=== PATIENT | female | born 1980 | race Caucasian/White ===

== ENCOUNTER 2017-01-06 20:58 | Emergency (ER) | payer OTHER ==
[2017-01-06 21:10] VITALS: BP 132/69
--- OUTSIDE RECORDS SUMMARY | 2017-01-06 21:33 | XMS REPORT | Continuity of Care Document ---
:1980 Author Organization [facility] ([facility]) Address [address] [place] [address] Phone [phone] Care Team Providers Name Role Phone Christa Montejo Primary Care Provider [phone] Source Comments This disclosure is being made pursuant to the Care Everywhere program, applicable federal and state laws, and may not contain all informaitonavailable regarding this patient.[facility] ([facility]) Active Allergies and Adverse Reactions Allergen Noted Date Severity Reactions Comments Sulfa (Sulfonamide Antibiotics) 09/16/2014 Rash Current Medications No known medications Active Problems Problem Noted Date Headache(784.0) 09/21/2014 Migraine with aura, without mention of intractable migraine without 09/17/2014 mention of status migrainosus New daily persistent headache 09/17/2014 Most Recent Encounters Date Type Specialty Providers Description 12/27/2016 Telephone Otolaryngology Lyly Farias, Chief Comp: Ask-a- nurse RN 12/25/2016 Office Visit Audiology Helena Low, Chief Comp: Patient MD Reported Reason For Visit 12/25/2016 Office Visit Otolaryngology Helena Low Dx: Balance problems (Primary Dx) 12/25/2016 Office Visit Otolaryngology Helena Low, Dx: BPPV (benign MD paroxysmal positional vertigo), left (Primary Dx) 12/13/2016 Telephone Audiology Ashli Loredo Chief Comp: Dizziness 12/07/2016 Office Visit Neurosurgery Ross An, 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 Hospital Encounter Radiology Kristi Hampton MD Chief Comp: Patient Reported Reason For Visit 12/04/2016 Hospital Encounter Radiology Kristi Hampton MD Chief Comp: Patient Reported Reason For Visit 12/04/2016 Hospital Encounter Radiology Kristi Hampton MD Chief Comp: Patient Reported Reason For Visit 11/21/2016 Telephone Neurology Noemy Livingston, Chief Comp: MD Consultation 11/06/2016 Telephone Neurology Chun Freed Chief Comp: Discuss MD Recommendations 11/05/2016 Orders/Notes Neurology Chun Freed Dx: Cerebellar MD tonsillar ectopia (Primary Dx) 11/05/2016 Telephone Neurology Chun Freed Chief Comp: Discuss MD Test Results 11/02/2016 Telephone Neurology Chun Freed Chief Comp: Discuss MD Report 10/29/2016 Orders/Notes Neurology Chun Freed Dx: Vertigo (Primary MD Dx) 10/29/2016 Telephone Neurology Chnu Freed Chief Comp: Request for MD Prescription 10/25/2016 Telephone Neurology Chun Freed Chief Comp: Follow-up MD 10/17/2016 Office Visit Neurology Default, Other Dx: Dizziness (Primary Billg - Defo Dx) Zachariah Khanna MD Hvidston, Jacob A, MD Social History Tobacco Use Types Packs/Day Years Used Date Former Smoker Cigarettes 1 Smokeless Tobacco: Never Used Tobacco Cessation:Counseling Given: Yes Comments:pt smoked when she was younger and not for very long Alcohol Use Drinks/Week oz/Week Comments No Last Filed Vital Signs Vital Sign Reading Time Taken Blood Pressure 126/70 12/25/2016 12:25 PM 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 Pulse 71 12/25/2016 12:25 PM 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 Temperature 35.4 C (95.7 F) 12/25/2016 12:25 PM 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 Respiratory Rate 16 09/11/2014 4:42 PM CDT Height 1.651 m (5' 5") 12/25/2016 12:25 PM 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 Weight 98.4 kg (216 lb 14.9 oz) 12/25/2016 12:25 PM 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 Body Mass Index 36.1 12/25/2016 12:25 PM 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 Oxygen Saturation 99% 09/11/2014 4:42 PM CDT Plan of Care Date Type Specialty Providers Description 01/22/2017 Appointment Rehabilitation Therapist, Rehab Chief Comp: Patient [phone] Reported Reason For Visit 02/26/2017 Appointment Neurology Zachariah Khanna MD [address] [place] [phone] (Fax) Chief Comp: Patient Lourdes Chun Badillo MD [address] [place] [address] [phone] (Fax) Reported Reason For Visit Health Maintenance Due Date Last Done Comments Hepatitis B Vaccine (1 of 3 - Primary Series) 1978 Tdap Vaccine 1989 Lipid Disorder Screening 1996 MMR Vaccine 1996 Td Vaccine 1996 Cervical Cancer Screening 2008 Influenza Vaccine: Seasonal (#1) 06/25/2016 Procedures from Last 3 Months Procedure Name Priority Date/Time Associated Diagnosis Comments BINOC KERI Routine 12/26/2016 10:18 AM Cerebellar tonsillar Results for this 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 ectopia procedure are in the BPPV (benign results section. paroxysmal positional vertigo), left Vertigo Results from Last 3 Months ALFREDO OTOMICROSCOPY (12/26/2016 10:18 AM) Narrative Helena Low MD 12/26/2016 10:18 AM Clinic Note Encounter Date: 12/25/2016 Subjective: Estephania Smart is a 36 y.o. female with new onset vertiginous episodes in June of 2016.She notes consant sensation of lightheadedness.She also has accompanying vertigo, room spinning episodes that last less a minute.The vertigo is brought on by quick movements, and these episodes happen multiple times a day.No hearing changes.She has had a constant occipital pressure for the past 2 years, but no auras or photophobia. Worked-up by neurology, with MRI showing slight cerebellar tonsillar herniation, neurosurgery has evaluated this and felt this was not related to symptoms. 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 No current facility-administered medications for this visit. Allergies Allergen Reactions Sulfa (Sulfonamide Antibiotics) Rash Social History Social History Marital Status: Unknown Spouse Name: N/A Number of Children: N/A Years of Education: N/A Occupational History Not on file. Social History Main Topics Smoking status: Former Smoker -- 1 years Types: Cigarettes Smokeless tobacco: Never Used Comment: pt smoked when she was younger and not for very long Alcohol Use: No Drug Use: No Sexual Activity: Partners: Male Control/ Protection: Natural Family Planning Other Topics Concern Not on file Social History Narrative Review of Systems ROS All systems were reviewed and are negative except for: Constitutional: Tired or sleepy Eyes: Blurry vision Musculoskeletal: Muscle weakness Neurological: Dizziness, Frequent Headaches Objective: BP 126/70 mmHg | Pulse 71 | Temp(Src) 35.4 C (95.7 F) (Tympanic) | Ht 1.651 m (5' 5") | Wt 98.4 kg (216 lb 14.9 oz) | BMI 36.10 kg/m2 Physical exam: General appearanceAlert, cooperative, no distress Communication Normal speech HeadNormocephalic, atraumatic EyesPERRL, EOM's intact; EarsNormal Auricles AU; EAC - - clear; AD - clear; TM: :normal landmarks and mobility AD:normal landmarks and mobility Tuning [place] [employer] [place] [address]? RinneAD + RinneAS + Nose External inspection: dorsum midline Internal inspection: Septum midline. Mucosa normal appearing; Nasopharynx: normal Oral Lips: normal Dentition: normal Mucosa: normal Hard Palate: normal Oropharynx Mucosa: normal Soft palate: normal Tonsils: normal Neck Mass: No neck masses noted Thyroid: normal; no palpable nodules Cranial Nerve CN II-XII intact bilaterally Mood/affect normal Mental Status normal Heartregular rate and rhythm, no m/r/g Abdomen Soft, non-distended Lungs clear to auscultation bilaterally Normal Romberg and gait. No nystagmus with Sammi-Hallpike Data Reviewed: interpret audio/ABR old/outside records AU normal hearing MRI 09/03 - no CPA or IAC tumors Procedure Performed: Otomicroscopy Additional Procedure Detail: The use of the operating otomicroscope was needed for complete, 3D views of the bilateral external auditory canals in this patient. Given the complexity of the otologic history and diagnostic concerns, detailed anatomic visualization with depth perception was required for thorough assessment and treatment planning in addition to any cleaning of cerumen and desquamated debris in the canal and on the tympanic membrane. The findings are documented above in the exam. The Attending Provider listed below was present and available for the entire procedure. Assessment: Encounter Diagnoses ICD-9-CM ICD-10-CM 1. BPPV (benign paroxysmal positional vertigo), left 386.11 H81.12 2. Cerebellar tonsillar ectopia 742.4 Q04.8 3. Vertigo 780.4 R42 Possible component of BPPV, this would not fully explain baseline lightheadedness.The accompanying headaches may be related to these symptoms. Plan: -Instructed on Kp Jeffrey exercises -Referral to Yessy Rojas for vestibular rehab if no improvement in 6 weeks Javan Haines MD Teaching Statement I have interviewed and examined the patient and confirm the pertinent findings.I have discussed the case with the resident/fellow and agree with the findings and plan as documented. EXTERNAL CT - STORE ONLY (12/04/2016 3:57 PM)EXTERNAL MRI - STORE ONLY (2016 3:57 PM)Only the most recent of2 resultswithin the time period is included.
--- NOTE | 2017-01-06 21:46 | ERNOTE ---
Date of Service: 01/06/17 Time Seen by Provider: 01/06/17 21:25 Stated Complaint: COLD.SINUS.COUGH Presenting Symptoms:: cough, runny nose Source: patient, family Exam Limitations: no limitations Immunizations: IMMUNIZATION HX Immunizations Up to Date No History of Influenza Vaccine No Hx Pneumococcal Vaccination More Information Required Allergies/Adverse Reactions: Allergies Sulfa (Sulfonamide Antibiotics) [Sulfa(Sulfonamide Antibiotics)] Allergy (Mild, Verified 01/06/17 21:10) hives, fever Home Medications: HOME MEDICATIONS NK [No Home Medication] 01/06/17 [Last Taken Unknown] - History of Present Ilness Narrative: Pt. comes in with c/o nasal congestion sinus drainage and cough for three days. Pt. states that she has B lateral rib pain with coughing but denies any CP or SOB. Pt. denies any rhinorrhea, NVD, or alleviating factors despite taking sudafed for her symptoms. Review of Systems - Review of Systems Constitutional: Present: malaise. Absent: recent illness, fever, chills, weakness, fatigue EYE: Present: no symptoms reported ENT: Present: nose congestion. Absent: nasal drainage, sore throat Respiratory: Present: cough. Absent: shortness of breath, wheezing Cardiology: Present: no symptoms reported. Absent: chest pain, palpitations, edema Gastrointestinal/Abdominal: Present: no symptoms reported. Absent: nausea, vomiting, diarrhea Genitourinary: Present: no symptoms reported Musculoskeletal: Present: no symptoms reported. Absent: back pain, joint pain Skin: Present: no symptoms reported Neurological: Present: no symptoms reported. Absent: headache, dizziness/light- headedness, numbness, tingling All Other Systems: All systems neg except as marked - Patient's Past Medical History Patient History - Medical: Headache, UTI'S Patient History - Cardiac/Respiratory: No pertinent hx Patient History - Cancer: No Hx of Cancer Patient History - Surgical Procedures: , Hysterectomy, Other Patient History - Other: None - Family History Mother Family History - Medical: No pertinent hx Family History - Cardiac/Respiratory: No pertinent hx Father Family History - Medical: , No pertinent hx Family History - Cardiac/Respiratory: Myocardial Infarction Grandfather-Maternal Family History - Medical: No pertinent hx Family History - Cardiac/Respiratory: No pertinent hx - Social History Living Situations: home Abuse History: No History of abuse Psych History: No pertinent hx Does anyone smoke in the home?: No Smoking Status: Former smoker Alcohol Use: none Drug Use: none - Immunizations Immunizations Up to Date: No Hx Pneumococcal Vaccination: More Information Required to Determine History of Influenza Vaccine: No Physical Exam - Physical Exam General Appearance: Present: wd/wn, alert, no apparent distress Eye Exam: Normal inspection: bilateral, PERRL: bilateral, EOMI: bilateral Ears, Nose, Throat: Present: hearing grossly normal, nasal congestion, sinus pain/drainage, normal pharynx, tonsillar exudate - clear. Absent: pharyngeal erythema Neck: Present: normal inspection, nontender. Absent: lymphadenopathy (R), lymphadenopathy (L) Respiratory: Present: no respiratory distress, normal breath sounds, no accessory muscle use, chest nontender, lungs clear Cardiovascular/Chest: Present: regular rate, rhythm, no murmur, normal peripheral pulses Gastrointestinal/Abdominal: Present: normal bowel sounds, nontender, nondistended, soft, no organomegaly Back Exam: Present: normal inspection, normal range of motion, no CVA tenderness , no vertebral tenderness Extremity Exam: Present: normal inspection, non-tender, no edema, normal range of motion Neurological Exam: Present: alert, oriented, normal mood/affect, no motor/ sensory deficits Skin Exam: Present: normal color, warm/dry. Absent: pallor, skin rash ED Progress - Vital Signs Patient's Vital Signs:: I have reviewed the patient's vital signs. Vital Signs: Vital Signs 01/06/17 21:05 Temperature 36.2 C L Pulse Rate 72 Respiratory 18 Rate Blood Pressure 132/69 O2 Sat by Pulse 99 Oximetry - Progress/Reassessment Chief Complaint: Upper Respiratory Symptoms Departure - Departure Clinical Impression: Bronchitis Upper respiratory infection Qualifiers: URI type: unspecified viral URI Qualified Code(s): J06.9 - Acute upper respiratory infection, unspecified; B97.89 - Other viral agents as the cause of diseases classified elsewhere Disposition: Home self-care Condition: Good Instructions: Upper Respiratory Infection, Adult, [id number], Acute Bronchitis Additional Instructions: Please follow up with primary provider in a week if no improvement. Rest as much as possible. Take robitussin DM and sudafed as needed for symptoms. Referrals: Christa Montejo MD [Primary Care Provider] -
== END 2017-01-06 21:46 | disposition home or self-care (01) ==
LOC: ER 20:58
DX: J40 Bronchitis, not specified as acute or chronic (principal); J06.9 Acute upper respiratory infection, unspecified; B97.89 Other viral agents as the cause of diseases classified elsewhere

== ENCOUNTER 2017-01-17 21:01 | Emergency (ER) | payer OTHER ==
[2017-01-17 21:14] VITALS: BP 122/69
--- NOTE | 2017-01-17 21:32 | ERNOTE ---
Time Seen by Provider: 01/17/17 21:29 Stated Complaint: COLD Presenting Symptoms:: cough, sore throat Source: patient Exam Limitations: no limitations Immunizations: IMMUNIZATION HX Immunizations Up to Date No History of Influenza Vaccine No Hx Pneumococcal Vaccination More Information Required Allergies/Adverse Reactions: Allergies Sulfa (Sulfonamide Antibiotics) [Sulfa(Sulfonamide Antibiotics)] Allergy (Mild, Verified 01/17/17 21:14) hives, fever Home Medications: HOME MEDICATIONS Amox Tr/Potassium Clavulanate [Augmentin 875-125 Tablet] 875 mg PO Q12H #20 tab 01/17/17 [Last Taken Unknown] Fluticasone Propionate [Flonase] 2 spray NS DAILY #1 inhaler 01/17/17 [Last Taken Unknown] - History of Present Ilness Narrative: has had URI symptoms for a month. Was seen in this ED 2 weeks ago and given robitussin and sudafed. continues to have symptoms Timing: getting worse Severity: moderate Frequency/Possible Cause: Reports: occasional episodes Review of Systems - Review of Systems Constitutional: Present: See HPI. Absent: fever EYE: Present: no symptoms reported ENT: Present: other - frequent clearing of her throat that "I have always done" Respiratory: Present: cough Cardiology: Present: no symptoms reported Gastrointestinal/Abdominal: Present: no symptoms reported Genitourinary: Present: no symptoms reported Musculoskeletal: Present: no symptoms reported Skin: Present: no symptoms reported Neurological: Present: no symptoms reported Endocrine: Present: no symptoms reported Hematologic/Lymphatic: Present: swollen glands - left upper cervical, have been sore - Patient's Past Medical History Patient History - Medical: Headache, UTI'S Patient History - Cardiac/Respiratory: No pertinent hx Patient History - Cancer: No Hx of Cancer Patient History - Surgical Procedures: , Hysterectomy, Other Patient History - Other: None - Family History Mother Family History - Medical: No pertinent hx Family History - Cardiac/Respiratory: No pertinent hx Father Family History - Medical: , No pertinent hx Family History - Cardiac/Respiratory: Myocardial Infarction Grandfather-Maternal Family History - Medical: No pertinent hx Family History - Cardiac/Respiratory: No pertinent hx - Social History Living Situations: home Abuse History: No History of abuse Psych History: No pertinent hx Does anyone smoke in the home?: No Smoking Status: Never smoker Alcohol Use: none Drug Use: none - Immunizations Immunizations Up to Date: No Hx Pneumococcal Vaccination: More Information Required to Determine History of Influenza Vaccine: No Physical Exam - Physical Exam General Appearance: Present: wd/wn, alert, no apparent distress Eye Exam: Normal inspection: bilateral Ears, Nose, Throat: Present: nasal congestion - with polyps bilateral, moderate erythema on the right and pale mucosa on the left, sinus pain/drainage - minimal PND. Absent: pharyngeal erythema Neck: Present: lymphadenopathy (L) - upper cervical Respiratory: Present: no respiratory distress, normal breath sounds, no accessory muscle use, lungs clear Cardiovascular/Chest: Present: regular rate, rhythm, no murmur Neurological Exam: Present: alert, oriented, normal mood/affect, no motor/ sensory deficits Skin Exam: Present: normal color, warm/dry ED Progress - Vital Signs Patient's Vital Signs:: I have reviewed the patient's vital signs. Vital Signs: Vital Signs 01/17/17 21:01 Temperature 36.5 C Pulse Rate 78 Respiratory 20 Rate Blood Pressure 122/69 O2 Sat by Pulse 98 Oximetry - Progress/Reassessment Chief Complaint: Upper Respiratory Symptoms Departure - Departure Clinical Impression: Nasal polyp Sinusitis, acute ethmoidal Qualifiers: Recurrence: non-recurrent Qualified Code(s): J01.20 - Acute ethmoidal sinusitis , unspecified Disposition: Home Follow Up Needed Condition: Good Instructions: Sinusitis, Adult, [id number] Referrals: Christa Montejo MD [Primary Care Provider] - Prescriptions: Amox Tr/Potassium Clavulanate [Augmentin 875-125 Tablet] 875 mg PO Q12H #20 tab Fluticasone Propionate [Flonase] 2 spray NS DAILY #1 inhaler
--- OUTSIDE RECORDS SUMMARY | 2017-01-17 21:42 | XMS REPORT | Continuity of Care Document ---
:1980 Author Organization [facility] ([facility]) Address [address] [place] [address] Phone [phone] Care Team Providers Name Role Phone Christa Montejo Primary Care Provider [phone] Source Comments This disclosure is being made pursuant to the Care Everywhere program, applicable federal and state laws, and may not contain all informaitonavailable regarding this patient.[facility] ([facility]) Active Allergies and Adverse Reactions Allergen [...] Vertigo (Primary MD Dx) 10/29/2016 Telephone Neurology Chun Freed Chief Comp: Request for MD Prescription [...] Taken Blood Pressure 126/70 12/25/2016 12:25 PM TRANSITIONS RN CARE COORDINATOR Pulse 71 12/25/2016 12:25 PM TRANSITIONS RN CARE COORDINATOR Temperature 35.4 C (95.7 F) 12/25/2016 12:25 PM TRANSITIONS RN CARE COORDINATOR Respiratory Rate 16 09/11/2014 4:42 PM CDT Height 1.651 m (5' 5") 12/25/2016 12:25 PM TRANSITIONS RN CARE COORDINATOR Weight 98.4 kg (216 lb 14.9 oz) 12/25/2016 12:25 PM TRANSITIONS RN CARE COORDINATOR Body Mass Index 36.1 12/25/2016 12:25 PM TRANSITIONS RN CARE COORDINATOR Oxygen Saturation 99% 09/11/2014 4:42 PM CDT Plan of Care Date Type Specialty Providers Description 01/22/2017 Appointment Rehabilitation Therapist, Rehab Chief Comp: Patient [phone] Reported Reason For Visit 02/26/2017 Appointment Neurology Zachariah Khanna MD [address] [place] [phone] (Fax) Chief Comp: Patient Lourdes Chun Badillo MD [address] [place] [address] [phone] (Fax) Reported Reason For Visit Health Maintenance [...] 10:18 AM Cerebellar tonsillar Results for this TRANSITIONS RN CARE COORDINATOR ectopia procedure are in the BPPV (benign [...] problems PSH: no ear surgeries 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 RinneAD + RinneAS + Nose [...]
[2017-01-17] MEDS ORDERED: AMOX TR/POTASSIUM CLAVULANATE 875 MG TABLET PO ONE (21:47)
[2017-01-17] MEDS ORDERED: AMOX TR/POTASSIUM CLAVULANATE 875 MG TABLET ONE (21:50)
== END 2017-01-17 21:54 | disposition home or self-care (01) ==
LOC: ER 21:01
DX: J33.9 Nasal polyp, unspecified (principal); J01.20 Acute ethmoidal sinusitis, unspecified

== ENCOUNTER 2017-02-11 08:29 | Emergency (ER) | payer OTHER ==
--- NOTE | 2017-02-11 08:52 | ERNOTE ---
Chest Pain/Cardiac HPI Chief Complaint: Chest Pain Time Seen by Provider: 02/11/17 08:48 Source: patient Exam Limitations: no limitations Immunizations: IMMUNIZATION HX Immunizations Up to Date No History of Influenza Vaccine No Hx Pneumococcal Vaccination More Information Required Allergies/Adverse Reactions: Allergies Sulfa (Sulfonamide Antibiotics) [Sulfa(Sulfonamide Antibiotics)] Allergy (Mild, Verified 01/17/17 21:14) hives, fever Home Medications: HOME MEDICATIONS Amox Tr/Potassium Clavulanate [Augmentin 875-125 Tablet] 875 mg PO Q12H #20 tab 01/17/17 [Last Taken Unknown] Fluticasone Propionate [Flonase] 2 spray NS DAILY #1 inhaler 01/17/17 [Last Taken Unknown] Narrative: chest discomfort for 3 days, worse today intermittent and arm pain changing from left to right Timing: getting worse Severity/Quality: moderate Location: central, shoulder, back, abdomen Chest Pain Radiation: arms Activities at Onset: none Modifying Factors - Improves: Present: rest Modifying Factors - Worsens: Present: eating, position Associated Symptoms: Present: nausea, abdominal pain. Absent: dizziness, syncope, shortness of breath Review of Systems - Review of Systems Constitutional: Present: no symptoms reported EYE: Present: no symptoms reported ENT: Present: no symptoms reported Respiratory: Present: no symptoms reported Cardiology: Present: See HPI Gastrointestinal/Abdominal: Present: See HPI. Absent: vomiting Genitourinary: Present: no symptoms reported Musculoskeletal: Present: back pain, muscle pain Skin: Present: no symptoms reported Neurological: Present: no symptoms reported Endocrine: Present: no symptoms reported Hematologic/Lymphatic: Present: no symptoms reported Psych: Present: no symptoms reported - Patient's Past Medical History Patient History - Medical: Headache, UTI'S Patient History - Cardiac/Respiratory: No pertinent hx Patient History - Cancer: No Hx of Cancer Patient History - Surgical Procedures: , Hysterectomy, Other Patient History - Other: None - Family History Mother Family History - Medical: No pertinent hx Family History - Cardiac/Respiratory: No pertinent hx Father Family History - Medical: , No pertinent hx Family History - Cardiac/Respiratory: Myocardial Infarction Grandfather-Maternal Family History - Medical: No pertinent hx Family History - Cardiac/Respiratory: No pertinent hx - Social History Living Situations: home Abuse History: No History of abuse Psych History: No pertinent hx Does anyone smoke in the home?: No Alcohol Use: none Drug Use: none - Immunizations Immunizations Up to Date: No Hx Pneumococcal Vaccination: More Information Required to Determine History of Influenza Vaccine: No Physical Exam - Physical Exam General Appearance: Present: wd/wn, alert, no apparent distress Eye Exam: Normal inspection: bilateral Ears, Nose, Throat: Present: normal ENT inspection Neck: Present: normal inspection, nontender Respiratory: Present: no respiratory distress, normal breath sounds, no accessory muscle use, lungs clear Cardiovascular/Chest: Present: regular rate, rhythm, no murmur, normal peripheral pulses Gastrointestinal/Abdominal: Present: normal bowel sounds, tenderness - mild LUQ Back Exam: Present: no CVA tenderness, no vertebral tenderness Extremity Exam: Present: normal inspection, non-tender, no edema Neurological Exam: Present: alert, oriented, normal mood/affect Skin Exam: Present: normal color, warm/dry ED Progress - Results and Orders Patient's Lab Results:: I have reviewed the patient's lab results. Results and Orders: Laboratory Tests 02/11/17 02/11/17 02/11/17 08:55 08:55 08:55 WBC 5.0 Hgb 12.9 Hct 41.0 Plt Count 222 PT 10.7 INR (Anticoag Therapy) 1.03 PTT ([place]) 27.5 Sodium 144 H Potassium 3.7 Chloride 107 H Carbon Dioxide 28.7 Anion Gap 12.0 BUN 17 Creatinine 1.16 Est GFR (Non-Af Amer) 56 L Random Glucose 94 Calcium 8.7 Total Bilirubin 0.6 AST 13 ALT 14 L Alkaline Phosphatase 75 Troponin I Less than 0.017 Total Protein 7.0 - Vital Signs Patient's Vital Signs:: I have reviewed the patient's vital signs. Vital Signs: Vital Signs 02/11/17 08:35 Temperature 37.0 C Pulse Rate 60 Respiratory 17 Rate Blood Pressure 132/56 O2 Sat by Pulse 98 Oximetry - EKG EKG: NSR EKG read: Interp. by me EKG Comments: mod. intraventricular conduction delay. - X-Ray X-Ray #1 X-Ray: chest Interpretation: Interp. by me X-ray Comments: no infiltrate or effusion. suggestive of bronchitis - Progress/Reassessment Chief Complaint: Chest Pain Progress:: Improved Progress Note-Subjective: 03/20/17 10:54 Pt was given a GI coctail, she states that her pain is worse in the LUQ and around to her back now than before. Crampy with some occasional sharp pains. Mild tenderness in the LUQ. Departure - Departure Clinical Impression: Constipation Qualifiers: Constipation type: other constipation type Qualified Code(s): K59.09 - Other constipation Disposition: Home self-care Condition: Good Instructions: Constipation, Adult, [id number] Additional Instructions: Take a dose of milk of Magnesia as soon as you get home. Drink plenty of water. follow up with your regular doctor if not improving Referrals: Christa Montejo MD [Primary Care Provider] -
[2017-02-11 09:07] LABS: Hemoglobin 12.9 gm/dL (12.5-16.0); Mean Cell Volume 89.9 fl (78-100); Mean Corpuscular Hemoglobin 28.3 pg (27-31); Mean Corpuscular Hgb Conc 31.5 g/dl (32-36); Mean Platelet Volume 9.6 fl (6.0-9.5); Neutrophil # 3.3 K/mm3 (1.3-6.0); Neutrophil % 66.3 % (42-75.0); Platelet Count 222 K/mm3 (150-450); Red Blood Count 4.56 M/mm3 (4.2-5.4)
[2017-02-11 09:18] LABS: Prothrombin Time (Patient) 10.7 Seconds (9.4-11.4)
[2017-02-11 09:19] LABS: INR 1.03 INR (0.90-1.10); Partial Thrombolplastin Time 27.5 Seconds (24-32)
--- OUTSIDE RECORDS SUMMARY | 2017-02-11 09:23 | XMS REPORT | Continuity of Care Document ---
:1980 Author Organization [facility] ([facility]) Address [address] [place] [address] Phone [phone] Care Team Providers Name Role Phone Christa Montejo Primary Care Provider [phone] Source Comments This disclosure is being made pursuant to the Care Everywhere program, applicable federal and state laws, and may not contain all informaitonavailable regarding this patient.[facility] ([facility]) Active Allergies and Adverse Reactions Allergen Noted Date Severity Reactions Comments Sulfa (Sulfonamide Antibiotics) 09/16/2014 Rash Current Medications No known medications Active Problems Problem Noted Date Headache(784.0) 09/21/2014 Migraine with aura, without mention of intractable migraine without 09/17/2014 mention of status migrainosus New daily persistent headache 09/17/2014 Most Recent Encounters Date Type Specialty Providers Description 01/22/2017 Hospital Encounter Rehabilitation Therapist, Rehab Chief Comp: Patient Reported Reason For Visit 12/27/2016 Telephone Otolaryngology Lyly Farias, Chief Comp: MARILEE Sethi-a-nurse 12/25/2016 Office Visit Audiology Helena Low, Chief Comp: Patient MD Reported Reason For Visit 12/25/2016 Office Visit Otolaryngology Helena Low, Dx: Balance problems (Primary Dx) 12/25/2016 Office Visit Otolaryngology Heelna Low Dx: BPPV (benign MD paroxysmal positional vertigo), left (Primary Dx) 12/13/2016 Telephone Audiology Ashli Loredo Chief Comp: Dizziness 12/07/2016 Office Visit Neurosurgery Ross An MD 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 Hospital Encounter Radiology Kristi Hampton MD Chief Comp: Patient Reported Reason For Visit 12/04/2016 Hospital Encounter Radiology Kristi Hampton MD Chief Comp: Patient Reported Reason For Visit 12/04/2016 Hospital Encounter Radiology Kristi Hampton MD Chief Comp: Patient Reported Reason For Visit 11/21/2016 Telephone Neurology Noemy Livingston MD Chief Comp: Consultation Social History Tobacco Use Types Packs/Day Years Used Date Former Smoker Cigarettes 1 Smokeless Tobacco: Never Used Tobacco Cessation:Counseling Given: Yes Comments:pt smoked when she was younger and not for very long Alcohol Use Drinks/Week oz/Week Comments No Last Filed Vital Signs Vital Sign Reading Time Taken Blood Pressure 126/70 12/25/2016 12:25 PM [employer] Pulse 71 12/25/2016 12:25 PM [employer] Temperature 35.4 C (95.7 F) 12/25/2016 12:25 PM [employer] Respiratory Rate 16 09/11/2014 4:42 PM CDT Height 1.651 m (5' 5") 12/25/2016 12:25 PM [employer] Weight 98.4 kg (216 lb 14.9 oz) 12/25/2016 12:25 PM [employer] Body Mass Index 36.1 12/25/2016 12:25 PM [employer] Oxygen Saturation 99% 09/11/2014 4:42 PM CDT Plan of Care Date Type Specialty Providers Description 02/26/2017 Appointment Neurology Zachariah Khanna MD [address] [place] [address] [phone] (Fax) Chief Comp: Patient Lourdes Chun Badillo MD [address] [place] [address] [phone] (Fax) Reported Reason For Visit Health Maintenance [...] 10:18 AM Cerebellar tonsillar Results for this [employer] ectopia procedure are in the BPPV (benign [...] problems PSH: no ear surgeries 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 RinneAD + RinneAS + Nose [...] Normal Romberg and gait. No nystagmus with [place]-Hallpike Data Reviewed: interpret audio/ABR old/outside records [place] [...]
[2017-02-11 09:25] LABS: ALT 14 U/L (19-67); AST 13 U/L (0-48); Albumin * 3.7 gm/dl (3.4-5.0); Alkaline Phosphatase * 75 U/L (50-170); BUN/Creatinine Ratio 14.7 (9.0-21.6); Bilirubin, Total 0.6 mg/dL (0.0-1.1); Blood Urea Nitrogen 17 mg/dL (3-23); Ca. Corrected For Albumin 8.6 mg/dL (8.4-10.2); Calcium * 8.7 mg/dL (7.9-10.9); Carbon Dioxide 28.7 mmol/L (24-32.6); Chloride 107 mmol/L (97-106); Glucose * 94 mg/dL (70-110); Potassium 3.7 mmol/L (3.4-4.6); Sodium 144 mmol/L (132-142); Troponin I Less than 0.017 ng/ml (0.00-0.10)
[2017-02-11] MEDS ORDERED: LIDOCAINE HCL 20 ML UDC PO ONE (10:18)
[2017-02-11] MEDS ORDERED: MAG HYDROX/ALUMINUM HYD/SIMETH 30 ML UDC PO ONE (10:18)
[2017-02-11] MEDS ORDERED: SUCRALFATE 1 G/10 ML UDC PO ONE (10:18)
[2017-02-11] MEDS ORDERED: DICYCLOMINE HCL 10 MG/ML AMPUL IM ONE ×2 (10:56→10:59)
[2017-02-11 11:07] VITALS: BP 97/50
== END 2017-02-11 13:01 | disposition home or self-care (01) ==
LOC: ER 08:29
DX: K59.09 Other constipation (principal)

== ENCOUNTER 2017-02-17 18:43 | Emergency (ER) | payer OTHER ==
[2017-02-17] MEDS ORDERED: KETOROLAC TROMETHAMINE 60 MG/2 ML VIAL IM ONE ×2 (19:25→19:43)
--- OUTSIDE RECORDS SUMMARY | 2017-02-17 19:28 | XMS REPORT | Continuity of Care Document ---
:1980 Author Organization [facility] ([facility]) Address [address] [place] [address] Phone [phone] Care Team Providers Name Role Phone Christa Montejo Primary Care Provider [phone] Source Comments This disclosure is being made pursuant to the Care Everywhere program, applicable federal and state laws, and may not contain all informaitonavailable regarding this patient.[facility] ([facility]) Active Allergies and Adverse Reactions Allergen [...] (Primary Dx) 12/25/2016 Office Visit Otolaryngology Helena Low Dx: BPPV (benign MD paroxysmal positional [...] Taken Blood Pressure 126/70 12/25/2016 12:25 PM [employer] Pulse 71 12/25/2016 12:25 PM [employer] Temperature 35.4 C (95.7 F) 12/25/2016 12:25 PM [employer] Respiratory Rate 16 09/11/2014 4:42 PM CDT Height 1.651 m (5' 5") 12/25/2016 12:25 PM [employer] Weight 98.4 kg (216 lb 14.9 oz) 12/25/2016 12:25 PM [employer] Body Mass Index 36.1 12/25/2016 12:25 PM [employer] Oxygen Saturation 99% 09/11/2014 4:42 PM CDT Plan of Care Date Type Specialty Providers Description 02/26/2017 Appointment Neurology Zachariah Khanna MD [address] [place] [address] [phone] (Fax) Chief Comp: Patient Lourdes Chun Badillo MD [address] [place] [address] [phone] (Fax) Reported Reason For Visit Health Maintenance [...] 10:18 AM Cerebellar tonsillar Results for this [employer] ectopia procedure are in the BPPV (benign [...] problems PSH: no ear surgeries 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 RinneAD + RinneAS + Nose [...] Normal Romberg and gait. No nystagmus with [place]-Hallpike Data Reviewed: interpret audio/ABR old/outside records [place] [...]
--- NOTE | 2017-02-17 19:35 | ERNOTE ---
Dyspnea - Date Date of Service: 02/17/17 - General Presenting Symptoms: other Time Seen by Provider: 02/17/17 19:00 Source: patient Exam Limitations: no limitations - Immun/Allergies/Home Medications Immunizations: IMMUNIZATION HX Immunizations Up to Date No History of Influenza Vaccine No Hx Pneumococcal Vaccination More Information Required Allergies/Adverse Reactions: Allergies Sulfa (Sulfonamide Antibiotics) [Sulfa(Sulfonamide Antibiotics)] Allergy (Mild, Verified 01/17/17 21:14) hives, fever Home Medications: HOME MEDICATIONS Indomethacin 50 mg PO QID #30 cap 02/17/17 [Last Taken Unknown] - History of Present Illness Narrative: 3 months ago, had bronchits. Has had anterior chest pain since. Denies specifically heart burn and indigestion. Is not actually SOB, but says it is painful to breathe. Chest pain in aching all the time, with episodic sharp chest pain. No radiation of pain. No diaphoresis, lightheadness or nausea with the pain, although for the last week she has had some nausea and anorexia. She took some alleve today, but it didn't help her pain. Breathing, coughing or changing position worsen her pain. Severity: mild, moderate Treatment VESSEL LINER: by patient - alleve Initiating event: Reports: other - bronchitis Frequency of episodes: Reports: no prior episodes Modifying Factors - (Improves): Reports: rest Modifying Factors (Worsens): Reports: activity, coughing, lying down Associated Symptoms-Dyspnea: Reports: chest pain/discomfort Prior Treatment: Denies: recently seen, currently on antibiotics Review of Systems - Review of Systems Constitutional: Present: no symptoms reported EYE: Present: no symptoms reported ENT: Present: no symptoms reported Respiratory: Present: no symptoms reported Cardiology: Present: no symptoms reported Gastrointestinal/Abdominal: Present: no symptoms reported Genitourinary: Present: no symptoms reported Musculoskeletal: Present: See HPI Skin: Present: no symptoms reported Neurological: Present: no symptoms reported Endocrine: Present: no symptoms reported Hematologic/Lymphatic: Present: no symptoms reported Psych: Present: no symptoms reported All Other Systems: All systems neg except as marked - Patient's Past Medical History Patient History - Medical: Headache, UTI'S Patient History - Cardiac/Respiratory: No pertinent hx Patient History - Cancer: No Hx of Cancer Patient History - Surgical Procedures: , Hysterectomy, Other Patient History - Other: None - Family History Mother Family History - Medical: No pertinent hx Family History - Cardiac/Respiratory: No pertinent hx Father Family History - Medical: , No pertinent hx Family History - Cardiac/Respiratory: Myocardial Infarction Grandfather-Maternal Family History - Medical: No pertinent hx, GERD Family History - Cardiac/Respiratory: No pertinent hx - Social History Living Situations: other Abuse History: No History of abuse Psych History: No pertinent hx Does anyone smoke in the home?: No Smoking Status: Former smoker Alcohol Use: none Drug Use: none - Immunizations Immunizations Up to Date: No Hx Pneumococcal Vaccination: More Information Required to Determine History of Influenza Vaccine: No Physical Exam - Physical Exam General Appearance: Present: wd/wn, alert, no apparent distress Eye Exam: Normal inspection: bilateral, PERRL: bilateral, EOMI: bilateral Ears, Nose, Throat: Present: normal ENT inspection Neck: Present: normal inspection, nontender. Absent: lymphadenopathy (R), lymphadenopathy (L) Respiratory: Present: no respiratory distress, normal breath sounds, no accessory muscle use Cardiovascular/Chest: Present: regular rate, rhythm, no murmur, normal peripheral pulses, chest tenderness - anterior chest wall tenderness, costochondral junctions. left worse than right Gastrointestinal/Abdominal: Present: normal bowel sounds, nontender, nondistended, soft, no organomegaly Back Exam: Present: normal inspection, normal range of motion, no CVA tenderness , no vertebral tenderness Extremity Exam: Present: normal inspection, no edema Neurological Exam: Present: alert, oriented, normal mood/affect Skin Exam: Present: normal color, warm/dry ED Progress - Vital Signs Patient's Vital Signs:: I have reviewed the patient's vital signs. Vital Signs: Vital Signs 02/17/17 18:47 Temperature 36.8 C Pulse Rate 64 Respiratory 14 Rate Blood Pressure 142/77 O2 Sat by Pulse 99 Oximetry - EKG EKG read: Interp. by me - sinus bradycardia in the anterior leads. - Progress/Reassessment Chief Complaint: Dyspnea Departure Clinical Impression: Costochondritis - Departure Disposition: Home self-care Condition: Good Instructions: Costochondritis, [id number] Additional Instructions: see your doctor this week or next. stop the pain meds, except the one we prescribed today. Referrals: Christa Montejo MD [Primary Care Provider] - Prescriptions: Indomethacin 50 mg PO QID #30 cap
[2017-02-17 21:08] VITALS: BP 107/65
== END 2017-02-17 19:46 | disposition home or self-care (01) ==
LOC: ER 18:43
DX: M94.0 Chondrocostal junction syndrome [Tietze] (principal)

== ENCOUNTER 2017-03-08 14:51 | Emergency (ER) | payer SELFPAY ==
--- OUTSIDE RECORDS SUMMARY | 2017-03-08 17:47 | XMS REPORT | Continuity of Care Document ---
:1980 Author Organization [facility] ([facility]) Address [address] [place] [address] Phone [phone] Care Team Providers Name Role Phone Christa Montejo Primary Care Provider [phone] Source Comments This disclosure is being made pursuant to the Care Everywhere program, applicable federal and state laws, and may not contain all informaitonavailable regarding this patient.[facility] ([facility]) Active Allergies and Adverse Reactions Allergen Noted Date Severity Reactions Comments Sulfa (Sulfonamide Antibiotics) 09/16/2014 Rash Current Medications No known medications Active Problems Problem Noted Date Headache(784.0) 09/21/2014 Migraine with aura, without mention of intractable migraine without 09/17/2014 mention of status migrainosus New daily persistent headache 09/17/2014 Most Recent Encounters Date Type Specialty Providers Description 02/26/2017 Office Visit Neurology Zachariah Khanna Chief Comp: Patient L, Reported Reason For Chun Freed, Visit MD 01/22/2017 Hospital Encounter Rehabilitation Therapist, Rehab Chief Comp: Patient Reported Reason For Visit 12/27/2016 Telephone Otolaryngology Lyly Farias, Chief Comp: MARILEE Ask-a-nurse 12/25/2016 Office Visit Audiology Helena Low, Chief Comp: Patient Reported Reason For Visit 12/25/2016 Office Visit Otolaryngology Helena Low, Dx: Balance problems (Primary Dx) 12/25/2016 Office Visit Otolaryngology Helena Low Dx: BPPV (benign MD paroxysmal positional vertigo), left (Primary Dx) 12/13/2016 Telephone Audiology Ashli Loredo Chief Comp: Dizziness Social History Tobacco Use Types Packs/Day Years Used Date Former Smoker Cigarettes 1 Smokeless Tobacco: Never Used Tobacco Cessation:Counseling Given: Yes Comments:pt smoked when she was younger and not for very long Alcohol Use Drinks/Week oz/Week Comments No Last Filed Vital Signs Vital Sign Reading Time Taken Blood Pressure 126/70 12/25/2016 12:25 PM [employer] Pulse 71 12/25/2016 12:25 PM [employer] Temperature 35.4 C (95.7 F) 12/25/2016 12:25 PM [employer] Respiratory Rate 16 09/11/2014 4:42 PM CDT Height 1.651 m (5' 5") 12/25/2016 12:25 PM [employer] Weight 98.4 kg (216 lb 14.9 oz) 12/25/2016 12:25 PM [employer] Body Mass Index 36.1 12/25/2016 12:25 PM [employer] Oxygen Saturation 99% 09/11/2014 4:42 PM CDT Plan of Care Health Maintenance Due Date Last Done Comments Hepatitis B Vaccine (1 of 3 - Primary Series) 1980 Tdap Vaccine 1989 Lipid Disorder Screening 1996 MMR Vaccine 1996 Td Vaccine 1996 Cervical Cancer Screening 2008 Influenza Vaccine: Seasonal Completed Procedures from Last 3 Months Procedure Name Priority Date/Time Associated Diagnosis Comments BINOC KERI Routine 12/26/2016 10:18 AM Cerebellar tonsillar Results for this [employer] ectopia procedure are in the BPPV (benign [...] problems PSH: no ear surgeries 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 RinneAD + RinneAS + Nose [...] Normal Romberg and gait. No nystagmus with [place]-Hallpike Data Reviewed: interpret audio/ABR old/outside records [place] [...]
--- NOTE | 2017-03-08 17:58 | ERNOTE ---
Headache ER HPI - Narrative Date of Service: 03/08/17 - General Presenting Symptoms: headache Time Seen by Provider: 03/08/17 17:27 - Immun/Allergies/Home Medications Immunizations: IMMUNIZATION HX Immunizations Up to Date No History of Influenza Vaccine No Hx Pneumococcal Vaccination More Information Required Allergies/Adverse Reactions: Allergies Sulfa (Sulfonamide Antibiotics) [Sulfa(Sulfonamide Antibiotics)] Allergy (Mild, Verified 03/08/17 16:47) hives, fever Home Medications: HOME MEDICATIONS NK [No Home Medication] 03/08/17 [Last Taken Unknown] - History of Present Illness Narrative: PT SAYS SHE AWAKENED AT 1030 THIS A.M. WITH ONE OF HER HEADACHES TO THE RIGHT OCCIPITAL AREA . SHE TOOK NOTHING FOR THE PAIN. LATER SHE CALLED HER DR'S OFFICE AND THE NURSE TOLD HER SHE SHOULD GO TO THE ER BECAUSE MAYBE SHE NEEDED AN XRAY OR CT SCAN. SHE HAS NOT HX OF ANY TRAUMA. SHE DENIES ANY FEVER OR NECK PAIN. SHE STATES SHE HAS NO MEDICAL PROBLEMS AND ONLY SURGERY IS HYSTERECTOMY. SHE SLOWLY REVEALS THAT SHE HAS A HISTORY OF HEADACHES AND HAS EVEN BEEN EVALUATED WITHIN THE PAST YEAR BY NEUROLOGISTS IN [place] WHO CAN'T FIND ANYTHING WRONG OR TELL HER WHY SHE GETS TENDERNESS TO AN AREA ON HER LEFT UPPER OCCIPTIAL ( SHE POINTS TO THE AREA). Review of Systems - Review of Systems Constitutional: Present: See HPI EYE: Present: no symptoms reported ENT: Present: no symptoms reported Respiratory: Present: no symptoms reported Cardiology: Present: no symptoms reported Gastrointestinal/Abdominal: Present: no symptoms reported Genitourinary: Present: no symptoms reported Musculoskeletal: Present: See HPI - OCCIPITAL POINT TENDERNESS. Neurological: Present: See HPI, headache. Absent: seizure, weakness, numbness, tingling, tremors, pre-existing deficit Endocrine: Present: no symptoms reported Hematologic/Lymphatic: Present: no symptoms reported Psych: Present: no symptoms reported All Other Systems: All systems neg except as marked - Patient's Past Medical History Patient History - Medical: Headache, UTI'S Patient History - Cardiac/Respiratory: No pertinent hx Patient History - Cancer: No Hx of Cancer Patient History - Surgical Procedures: , Hysterectomy, Other Patient History - Other: None - Family History Mother Family History - Medical: No pertinent hx Family History - Cardiac/Respiratory: No pertinent hx Father Family History - Medical: , No pertinent hx Family History - Cardiac/Respiratory: Myocardial Infarction Grandfather-Maternal Family History - Medical: No pertinent hx, GERD Family History - Cardiac/Respiratory: No pertinent hx - Social History Living Situations: alone Abuse History: No History of abuse Psych History: No pertinent hx Does anyone smoke in the home?: No Smoking Status: Never smoker Alcohol Use: none Drug Use: none - Immunizations Immunizations Up to Date: No Hx Pneumococcal Vaccination: More Information Required to Determine History of Influenza Vaccine: No Physical Exam - Physical Exam General Appearance: Present: wd/wn, alert, no apparent distress, other - SHE HAS A VERY LOCALIZED ARE OF HER LEFFT UPPER OCCIPITAL SCALP THAT IS TENDER TO PALPATION FROM WHICH HER H.A. EMMINATES. Eye Exam: Normal inspection: bilateral, PERRL: bilateral, EOMI: bilateral Ears, Nose, Throat: Present: normal ENT inspection Neck: Present: normal inspection, nontender Respiratory: Present: no respiratory distress, normal breath sounds, no accessory muscle use, chest nontender, lungs clear Cardiovascular/Chest: Present: regular rate, rhythm, no murmur, irregularly irregular Back Exam: Present: normal inspection, normal range of motion, no CVA tenderness , no vertebral tenderness Neurological Exam: Present: alert, oriented, normal mood/affect, no motor/ sensory deficits, blueberry grower II-XII nml as tested, normal cerebellar test. Absent: facial droop, motor weakness, disoriented to person, disoriented to time, disoriented to place, disoriented to situation DTR: N=norm/NB=norm/brisk/A=abs/DD=dull/dimin/HC=hyperactive: Tricep (R): Normal , Tricep (L): Normal, Knee (R): Normal, Knee (L): Normal Skin Exam: Present: normal color, warm/dry. Absent: skin rash ED Progress - Vital Signs Vital Signs: Vital Signs 03/08/17 15:05 Temperature 37.0 C Pulse Rate 63 Respiratory 14 Rate Blood Pressure 145/76 O2 Sat by Pulse 99 Oximetry - Progress/Reassessment Chief Complaint: Headache Departure Clinical Impression: Muscle tension headache - Departure Disposition: Home Follow Up Needed Condition: Good Instructions: Tension Headache, [id number] Additional Instructions: TRY ICE OR HEAT TO SORE AREA. START WTIH TYLENOL 650 MG. IF THAT DOES NOT HELP IT ISS OK TO GIVE A TRIAL OF IBUPROFEN OR ALEVE. FOLLOW UP WITH YOUR FAMILY DOCTOR IF FURTHER PROBLEMS. YOUR NEUROLOGIC EXAM IS COMPLETELY NORMAL Referrals: Christa Montejo MD [Primary Care Provider] -
[2017-03-08 18:10] VITALS: BP 131/71
== END 2017-03-08 18:08 | disposition home or self-care (01) ==
LOC: ER 14:51
DX: G44.209 Tension-type headache, unspecified, not intractable (principal)

== ENCOUNTER 2017-03-22 01:56 | Emergency (ER) | payer SELFPAY ==
--- NOTE | 2017-03-22 02:12 | ERNOTE ---
Lower Extremity HPI - Narrative Date of Service: 03/22/17 - General Lower Extremities Pain: 2nd toe: right Time Seen by Provider: 03/22/17 01:58 Source: patient Exam Limitations: no limitations - Immun/Allergies/Home Medications Immunizations: IMMUNIZATION HX Immunizations Up to Date No History of Influenza Vaccine No Hx Pneumococcal Vaccination No Allergies/Adverse Reactions: Allergies Allergy/AdvReac Type Severity Reaction Status Date / Time Sulfa (Sulfonamide Allergy Mild hives, Verified 03/08/17 16:47 Antibiotics) fever [Sulfa(Sulfonamide Antibiotics)] Home Medications: HOME MEDICATIONS NK [No Home Medication] 03/08/17 [Last Taken Unknown] - History of Present Illness Narrative: c/o pain to right 2nd toe. No known injury. started yesterday. Occurred: yesterday Review of Systems - Review of Systems Constitutional: Present: See HPI Musculoskeletal: Present: See HPI, joint pain Skin: Present: no symptoms reported All Other Systems: All systems neg except as marked - Patient's Past Medical History Patient History - Medical: Headache, UTI'S Patient History - Cardiac/Respiratory: No pertinent hx Patient History - Cancer: No Hx of Cancer Patient History - Surgical Procedures: , Hysterectomy, Other Patient History - Other: None - Family History Mother Family History - Medical: No pertinent hx Family History - Cardiac/Respiratory: No pertinent hx Father Family History - Medical: , No pertinent hx Family History - Cardiac/Respiratory: Myocardial Infarction Grandfather-Maternal Family History - Medical: No pertinent hx, GERD Family History - Cardiac/Respiratory: No pertinent hx - Social History Living Situations: home Abuse History: No History of abuse Psych History: No pertinent hx Does anyone smoke in the home?: No Smoking Status: Former smoker Have you smoked in the past 12 months: No Do you dip or chew tobacco: No Alcohol Use: none Drug Use: none - Immunizations Immunizations Up to Date: No Hx Pneumococcal Vaccination: No History of Influenza Vaccine: No Physical Exam - Physical Exam General Appearance: Present: wd/wn, alert, no apparent distress Extremity Exam: Present: normal inspection, normal range of motion, no edema, other - pt states there is tender ness to dip jt. of right 2nd toe. no sign of swelling or discoloration or deformity or other injury. no erythema or sub ungual hematoma. nl refill and sensation. Neurological Exam: Present: alert, oriented Skin Exam: Present: normal color, warm/dry ED Progress - Vital Signs Vital Signs: Vital Signs 03/22/17 01:58 Temperature 36.8 C Pulse Rate 67 Respiratory 18 Rate Blood Pressure 139/67 O2 Sat by Pulse 98 Oximetry - X-Ray X-Ray #1 X-Ray: toe - right 2nd toe with no sign of abnormality and the same for other visible right toes. Interpretation: Interp. by me - Progress/Reassessment Chief Complaint: Lower Extremity Pain/ Injury Departure Clinical Impression: Pain in toe Qualifiers: Laterality: right Qualified Code(s): M79.674 - Pain in right toe(s) - Departure Disposition: Home self-care Condition: Good Instructions: Joint Pain, [id number] Additional Instructions: THE TOE XRAY LOOKS NORMAL TO ME. THE RADIOLOGIST WILL READ THE XRAYS IN THE MORNING AND IF THEY SEE SOMETHING DIFFERENT , WE WILL CALL YOU. YOU MAY HAVE SPRAINED THE TOE WITHOUT NOTICING. TRIAL OF ICE TO SORE AREA FOR 20-30 MINUTES EVERY 4-6 HOURS FOR 1-2 DAYS. USE TYLENOL OR IBUPROFEN FOR DISCOMFORT. RECHECK WITH YOUR LAG SCREWER IF WORSE OR NOT IMPROVING IN THE NEXT FEW DAYS. Referrals: Christa Montejo MD [Primary Care Provider] -
[2017-03-22 02:37] VITALS: BP 122/57
--- OUTSIDE RECORDS SUMMARY | 2017-03-22 02:37 | XMS REPORT | Continuity of Care Document ---
:1980 Author Organization [facility] ([facility]) Address [address] [place] [address] Phone [phone] Care Team Providers Name Role Phone Christa Montejo Primary Care Provider [phone] Source Comments This disclosure is being made pursuant to the Care Everywhere program, applicable federal and state laws, and may not contain all informaitonavailable regarding this patient.[facility] ([facility]) Active Allergies and Adverse Reactions Allergen Noted [...] Comp: Patient L, Reported Reason For Chun Freed Visit 01/22/2017 Hospital Encounter Rehabilitation Therapist, Rehab Chief Comp: Patient Reported Reason For Visit 12/27/2016 Telephone Otolaryngology Lyly Farias, Chief Comp: MARILEE Ask-a-nurse 12/25/2016 Office Visit Audiology Helena Low, Chief Comp: Patient Reported Reason For Visit 12/25/2016 Office Visit Otolaryngology Helena Low, Dx: Balance problems (Primary Dx) 12/25/2016 Office Visit Otolaryngology Helena Low Dx: BPPV (benign MD paroxysmal positional vertigo), left (Primary Dx) Social History Tobacco Use Types Packs/Day Years Used Date Former Smoker Cigarettes 1 Smokeless Tobacco: Never Used Tobacco Cessation:Counseling Given: Yes Comments:pt smoked when she was younger and not for very long Alcohol Use Drinks/Week oz/Week Comments No Last Filed Vital Signs Vital Sign Reading Time Taken Blood Pressure 126/70 12/25/2016 12:25 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 RinneAD + RinneAS + Nose [...] Normal Romberg and gait. No nystagmus with [place]-Hallpike Data Reviewed: interpret audio/ABR old/outside records [place] [...]
== END 2017-03-22 02:39 | disposition home or self-care (01) ==
LOC: ER 01:56
DX: M79.674 Pain in right toe(s) (principal); Z87.891 Personal history of nicotine dependence

== ENCOUNTER 2017-04-02 15:40 | Emergency (ER) | payer SELFPAY ==
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
--- OUTSIDE RECORDS SUMMARY | 2017-04-02 16:03 | XMS REPORT | Continuity of Care Document ---
:1980 Author Organization [facility] ([facility]) Address [place] [address] Phone [phone] Care Team Providers Name Role Phone Crhista Montejo Primary Care Provider [phone] Source Comments This disclosure is being made pursuant to the Care Everywhere program, applicable federal and state laws, and may not contain all informaitonavailable regarding this patient.[facility] ([facility]) Active Allergies and Adverse Reactions Allergen [...] L, Reported Reason For Chun Freed Visit MD 01/22/2017 Hospital Encounter Rehabilitation Therapist, Rehab Chief Comp: Patient Reported Reason For Visit Social History Tobacco Use Types Packs/Day Years Used Date Former Smoker Cigarettes 1 Smokeless Tobacco: Never Used Tobacco Cessation:Counseling Given: Yes Comments:pt smoked when she was younger and not for very long Alcohol Use Drinks/Week oz/Week Comments No Last Filed Vital Signs Vital Sign Reading Time Taken Blood Pressure 126/70 12/25/2016 12:25 PM CASING SEWER Pulse 71 12/25/2016 12:25 PM CASING SEWER Temperature 35.4 C (95.7 F) 12/25/2016 12:25 PM CASING SEWER Respiratory Rate 16 09/11/2014 4:42 PM CDT Height 1.651 m (5' 5") 12/25/2016 12:25 PM CASING SEWER Weight 98.4 kg (216 lb 14.9 oz) 12/25/2016 12:25 PM CASING SEWER Body Mass Index 36.1 12/25/2016 12:25 PM CASING SEWER Oxygen Saturation 99% 09/11/2014 4:42 PM CDT Plan of Care Health Maintenance Due Date Last Done Comments Hepatitis B Vaccine (1 of 3 - Primary Series) 1980 Tdap Vaccine 1989 Lipid Disorder Screening 1996 MMR Vaccine 1996 Td Vaccine 1996 Cervical Cancer Screening 2008 Influenza Vaccine: Seasonal Completed Results from Last 3 Months Not on file
[2017-04-02] MEDS ORDERED: KETOROLAC TROMETHAMINE 60 MG/2 ML VIAL IM ONE ×2 (16:13→16:15)
[2017-04-02 16:44] VITALS: BP 130/73
== END 2017-04-02 16:38 | disposition home or self-care (01) ==
LOC: ER 15:40
DX: S09.90XA Unspecified injury of head, initial encounter (principal); Z87.440 Personal history of urinary (tract) infections; W22.8XXA Striking against or struck by other objects, initial encounter; Y92.511 Restaurant or cafe as the place of occurrence of the external cause; Y99.0 Civilian activity done for income or pay

== ENCOUNTER 2017-04-06 20:45 | Emergency (ER) | payer SELFPAY ==
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
[2017-04-06] MEDS ORDERED: traMADol HCL 50 MG TABLET PO ONE (22:07)
[2017-04-06] MEDS ORDERED: traMADol HCL 50 MG TABLET ONE (22:08)
[2017-04-06 22:13] VITALS: BP 140/83
--- OUTSIDE RECORDS SUMMARY | 2017-04-06 22:24 | XMS REPORT | Continuity of Care Document ---
:1980 Author Organization [facility] ([facility]) Address [place] [address] Phone [phone] Care Team Providers Name Role Phone Christa Montejo Primary Care Provider [phone] Source Comments This disclosure is being made pursuant to the Care Everywhere program, applicable federal and state laws, and may not contain all informaitonavailable regarding this patient.[facility] ([facility]) Active Allergies and Adverse Reactions Allergen Noted [...] Taken Blood Pressure 126/70 12/25/2016 12:25 PM ICD 9 CODER Pulse 71 12/25/2016 12:25 PM ICD 9 CODER Temperature 35.4 C (95.7 F) 12/25/2016 12:25 PM ICD 9 CODER Respiratory Rate 16 09/11/2014 4:42 PM CDT Height 1.651 m (5' 5") 12/25/2016 12:25 PM ICD 9 CODER Weight 98.4 kg (216 lb 14.9 oz) 12/25/2016 12:25 PM ICD 9 CODER Body Mass Index 36.1 12/25/2016 12:25 PM ICD 9 CODER Oxygen Saturation 99% 09/11/2014 4:42 PM CDT Plan of Care Health Maintenance Due Date Last Done Comments Hepatitis B Vaccine (1 of 3 - Primary Series) 1980 Tdap Vaccine 1989 Lipid Disorder Screening 1996 MMR Vaccine 1996 Td Vaccine 1996 Cervical Cancer Screening 2008 Influenza Vaccine: Seasonal (Season Ended) 2017 Results from Last 3 Months Not on file
== END 2017-04-06 22:14 | disposition home or self-care (01) ==
LOC: ER 20:45
DX: S00.03XA Contusion of scalp, initial encounter (principal); W22.8XXA Striking against or struck by other objects, initial encounter

== ENCOUNTER 2017-05-18 18:54 | Emergency (ER) | payer SELFPAY ==
[2017-05-18 19:31] LABS: Hematocrit 40.9 % (37.0-47.0); Hemoglobin 13.2 gm/dL (12.5-16.0); Mean Cell Volume 87.6 fl (78-100); Mean Corpuscular Hemoglobin 28.3 pg (27-31); Mean Corpuscular Hgb Conc 32.3 g/dl (32-36); Mean Platelet Volume 10.1 fl (6.0-9.5); Neutrophil # 3.9 K/mm3 (1.3-6.0); Platelet Count 284 K/mm3 (150-450); Red Blood Count 4.67 M/mm3 (4.2-5.4); Red Cell Distribution Width 14.1 % (11.5-14.0); White Blood Count 6.7 K/mm3 (4.0-10.5)
[2017-05-18 19:37] LABS: Urine Appearance Clear; Urine Bilirubin Negative (NEGATIVE); Urine Color Yellow; Urine Ketone Negative (NEGATIVE); Urine Nitrite Negative (NEGATIVE); Urine Protein Negative (NEGATIVE); Urine RBC 0-5 /hpf (0-5); Urine Specific Gravity 1.025 SP.GR. (1.005-1.010); Urine Urobilinogen Normal (NORMAL); Urine WBC 0-5 /hpf (0-5)
[2017-05-18 19:38] LABS: Urine Bacteria None Seen; Urine Blood 25 /ul (NEGATIVE)
[2017-05-18 19:44] LABS: Albumin * 3.6 gm/dl (3.4-5.0); Anion Gap 15.3 mmol/L (6.8-13.8); BUN/Creatinine Ratio 11.7 (9.0-21.6); Bilirubin, Total 0.3 mg/dL (0.0-1.1); Carbon Dioxide 27.4 mmol/L (24-32.6); Potassium 3.7 mmol/L (3.4-4.6); Total Protein 7.1 gm/dL (6.2-8.2)
--- NOTE | 2017-05-18 20:49 | ERNOTE ---
Abdominal HPI - Narrative Date of Service: 05/18/17 - General Chief Complaint: Abdominal Pain Time Seen by Provider: 05/18/17 20:21 Source: patient Exam Limitations: no limitations - Immun/Allergies/Home Medications Immunizatons: IMMUNIZATION HX Immunizations Up to Date Yes History of Influenza Vaccine No Hx Pneumococcal Vaccination No Allergies/Adverse Reactions: Allergies Sulfa (Sulfonamide Antibiotics) [Sulfa(Sulfonamide Antibiotics)] Allergy (Mild, Verified 04/06/17 21:01) hives, fever Home Medications: HOME MEDICATIONS Celecoxib [Celebrex] 200 mg PO DAILY PRN #15 capsule 05/18/17 [Last Taken Unknown] - History of Present Illness Narrative: 36 year old that has been having lower abdominal pain for 3-4 months. Reports that she had been given a medication for ulcers, but does not know the name of it. The pain was dull, but now is sharp; nothing increases or decreases the pain. Seen at [place] last week wherein a CT of the abdomen/pelvis was done- but does not know what the results were. s/p hysterectomy three years ago. Denies any dysuria, urinary frequency, discharge, fever or chills. Has been taking Tylenol for pain, since she had been instructed not to take NSAID. Timing: constant Quality: moderate Activities at Onset: none Modifying Factors - (Improves): Present: other - none Modifying Factors - (Worsens): Present: other Associated Symptoms: Present: denies symptoms Prior Abdominal Problems: Present: similar symptoms Review of Systems - Review of Systems Constitutional: Present: no symptoms reported EYE: Present: no symptoms reported ENT: Present: no symptoms reported Respiratory: Present: no symptoms reported Cardiology: Present: no symptoms reported Gastrointestinal/Abdominal: Present: no symptoms reported Genitourinary: Present: no symptoms reported Musculoskeletal: Present: no symptoms reported Skin: Present: no symptoms reported Neurological: Present: no symptoms reported Endocrine: Present: no symptoms reported Hematologic/Lymphatic: Present: no symptoms reported Psych: Present: no symptoms reported - Patient's Past Medical History Patient History - Medical: Headache, UTI'S Patient History - Cardiac/Respiratory: No pertinent hx Patient History - Cancer: No Hx of Cancer Patient History - Surgical Procedures: , Hysterectomy, Other Patient History - Other: None LMP (females 10-50): hysterectomy - Family History Mother Family History - Medical: No pertinent hx Family History - Cardiac/Respiratory: No pertinent hx Father Family History - Medical: , No pertinent hx Family History - Cardiac/Respiratory: Myocardial Infarction Grandfather-Maternal Family History - Medical: No pertinent hx, GERD Family History - Cardiac/Respiratory: No pertinent hx - Social History Living Situations: home Abuse History: No History of abuse Psych History: No pertinent hx Does anyone smoke in the home?: No Smoking Status: Never smoker Do you dip or chew tobacco: No Alcohol Use: none Drug Use: none - Immunizations Immunizations Up to Date: Yes Hx Pneumococcal Vaccination: No History of Influenza Vaccine: No Physical Exam - Physical Exam General Appearance: Present: alert Eye Exam: Normal inspection: bilateral Ears, Nose, Throat: Present: normal ENT inspection Neck: Present: normal inspection, supple Respiratory: Present: no respiratory distress Cardiovascular/Chest: Present: regular rate, rhythm Gastrointestinal/Abdominal: Present: nondistended, soft, no organomegaly Back Exam: Present: normal inspection Extremity Exam: Present: normal inspection Neurological Exam: Present: alert, oriented Skin Exam: Present: normal color, warm/dry ED Progress - Results and Orders Patient's Lab Results:: I have reviewed the patient's lab results. - Vital Signs Patient's Vital Signs:: I have reviewed the patient's vital signs. Vital Signs: Vital Signs 05/18/17 18:57 Temperature 36.8 C Pulse Rate 86 Respiratory 16 Rate Blood Pressure 140/82 O2 Sat by Pulse 97 Oximetry - Progress/Reassessment Chief Complaint: Abdominal Pain Progress:: Unchanged Progress Note-Subjective: 05/18/17 21:40 CT scan abdomen and pelvis (04/28/17) done at [facility]: No acute disease noted. 05/24/17 11:19 Departure - Departure Clinical Impression: Chronic abdominal pain Disposition: Home self-care Condition: Fair Instructions: Pelvic Pain, Female, [id number] Print Language: Slovenian Additional Instructions: Follow up with your primary care physician. You will likely need to see a [facility]TER physician. Referrals: Christa Montejo MD [Primary Care Provider] - Prescriptions: Celecoxib [Celebrex] 200 mg PO DAILY PRN #15 capsule PRN Reason: Pain
[2017-05-18 21:39] VITALS: BP 134/80
== END 2017-05-18 21:50 | disposition home or self-care (01) ==
LOC: ER 18:54
DX: R10.9 Unspecified abdominal pain (principal)

== ENCOUNTER 2017-07-04 15:49 | Emergency (ER) | payer MEDICAID ==
--- NOTE | 2017-07-04 16:17 | ERNOTE ---
Abdominal HPI - Narrative Date of Service: 07/04/17 - General Chief Complaint: Abdominal Pain Time Seen by Provider: 07/04/17 16:16 Source: patient Exam Limitations: no limitations - Immun/Allergies/Home Medications Immunizatons: IMMUNIZATION HX Immunizations Up to Date Yes History of Influenza Vaccine Yes Hx Pneumococcal Vaccination Yes Allergies/Adverse Reactions: Allergies Sulfa (Sulfonamide Antibiotics) [Sulfa(Sulfonamide Antibiotics)] Allergy (Mild, Verified 07/04/17 16:03) hives, fever Home Medications: HOME MEDICATIONS Fluconazole 150 mg PO ONCE #1 tablet 07/04/17 [Last Taken Unknown] - History of Present Illness Narrative: Pt. comes in with c/o pelvic pain for 4 hours. Pt. denies any SOB, CP, NVD, fever, dysuria, frequency, constipation, and states that last bowel movement was this morning. Pt. denies any prehospital treatment but states that movement exacerbates the pain and nothing alleviates the pain. Review of Systems - Review of Systems Constitutional: Present: no symptoms reported. Absent: recent illness, fever, chills, weakness, fatigue, malaise EYE: Present: no symptoms reported ENT: Present: no symptoms reported Respiratory: Present: no symptoms reported. Absent: shortness of breath, cough , wheezing Cardiology: Present: no symptoms reported. Absent: chest pain, palpitations, edema Gastrointestinal/Abdominal: Present: no symptoms reported. Absent: nausea, vomiting, diarrhea, abdominal pain Genitourinary: Present: pain - pelvic pain increases with valsalva maneuver. Absent: dysuria, hematuria, decreased urinary output, discharge Musculoskeletal: Present: no symptoms reported. Absent: back pain, joint pain Skin: Present: no symptoms reported. Absent: rash, change in color Neurological: Present: no symptoms reported. Absent: headache, dizziness/light- headedness, numbness, tingling All Other Systems: All systems neg except as marked - Patient's Past Medical History Patient History - Medical: Headache, UTI'S Patient History - Cardiac/Respiratory: No pertinent hx Patient History - Cancer: No Hx of Cancer Patient History - Surgical Procedures: , Hysterectomy, Other Patient History - Other: None LMP (females 10-50): hysterectomy - Family History Mother Family History - Medical: No pertinent hx Family History - Cardiac/Respiratory: No pertinent hx Father Family History - Medical: , No pertinent hx Family History - Cardiac/Respiratory: Myocardial Infarction Grandfather-Maternal Family History - Medical: No pertinent hx, GERD Family History - Cardiac/Respiratory: No pertinent hx - Social History Living Situations: home Abuse History: No History of abuse Psych History: No pertinent hx Does anyone smoke in the home?: No Smoking Status: Never smoker Alcohol Use: none Drug Use: none - Immunizations Immunizations Up to Date: Yes Hx Pneumococcal Vaccination: Yes History of Influenza Vaccine: Yes Physical Exam - Physical Exam General Appearance: Present: wd/wn, alert, no apparent distress Head Exam: Present: normal inspection, no evidence of injury Eye Exam: Normal inspection: bilateral, PERRL: bilateral, EOMI: bilateral Respiratory: Present: no respiratory distress, normal breath sounds, no accessory muscle use, chest nontender, lungs clear Cardiovascular/Chest: Present: regular rate, rhythm, no murmur, normal peripheral pulses Gastrointestinal/Abdominal: Present: normal bowel sounds, nontender, nondistended, soft, no organomegaly Back Exam: Present: normal inspection, normal range of motion, no CVA tenderness , no vertebral tenderness Extremity Exam: Present: normal inspection, non-tender, normal range of motion, no edema Neurological Exam: Present: alert, oriented, normal mood/affect, no motor/ sensory deficits Skin Exam: Present: normal color, warm/dry. Absent: pallor, skin rash Pelvic Exam: Present: discharge - yellow and white clumping in areas stringy in others. Absent: cervical motion tendernes, tender adnexa, tender uterus ED Progress - Date and Time Seen: Date and Time: 07/04/17 16:39 Pt. denies any diagnosis of STDs in the past and is monogamous with the same sexual partner for over a year and does not have fever or back pain so I feel that this is an uncomplicated issue and as it just started this afternoon feel that it is not likely appendiceal. 07/04/17 18:22 Pt. with yeast like odor to her vaginal discharge. Will treat pt. for yeast infection and call with abx if her culture comes back positive in 2-3 days. - Vital Signs Patient's Vital Signs:: I have reviewed the patient's vital signs. Vital Signs: Vital Signs 07/04/17 15:55 Temperature 36.8 C Pulse Rate 82 Respiratory 16 Rate Blood Pressure 127/81 O2 Sat by Pulse 84 L Oximetry - Progress/Reassessment Chief Complaint: Abdominal Pain Departure - Departure Clinical Impression: Yeast vaginitis Disposition: Home self-care Condition: Good Instructions: Vaginal Yeast Infection, Adult Additional Instructions: Please follow up with ER RN in 2-3 days if not improving. We will call you if you need further treatment from further cultures. Referrals: Simone French DO [Non Staff Physicians] - Prescriptions: Fluconazole 150 mg PO ONCE #1 tablet
[2017-07-04 16:48] LABS: Urine Bilirubin Negative (NEGATIVE); Urine Ketone Negative (NEGATIVE); Urine Nitrite Negative (NEGATIVE); Urine Protein Negative (NEGATIVE); Urine Specific Gravity >=1.030 SP.GR. (1.005-1.010); Urine Urobilinogen Normal (NORMAL)
[2017-07-04 16:56] LABS: Urine Appearance Clear; Urine Bacteria 1+; Urine Blood 5 /ul (NEGATIVE); Urine Color Yellow; Urine Mucus Few - 1+; Urine RBC 0-5 /hpf (0-5); Urine WBC 0-5 /hpf (0-5)
[2017-07-05 16:31] VITALS: BP 108/75
[2017-07-08 23:49] LABS: Megasphaera Sp. Not detected (-); Trichomonas vaginalis RNA Qual Not detected (Not detected)
== END 2017-07-04 18:27 | disposition home or self-care (01) ==
LOC: ER 15:49
DX: N76.0 Acute vaginitis (principal)

== ENCOUNTER 2017-07-08 20:16 | Emergency (ER) | payer MEDICAID ==
[2017-07-08] MEDS ORDERED: NORMAL SALINE 1,000 ML IV ONE (21:01)
--- NOTE | 2017-07-08 21:02 | ERNOTE ---
Medical Problem HPI - General Chief Complaint: General Assessment Time Seen by Provider: 07/08/17 20:48 Source: patient Exam Limitations: no limitations - Immun/Allergies/Home Medications Immunizations: IMMUNIZATION HX Immunizations Up to Date Yes History of Influenza Vaccine Yes Hx Pneumococcal Vaccination Yes Allergies/Adverse Reactions: Allergies Sulfa (Sulfonamide Antibiotics) [Sulfa(Sulfonamide Antibiotics)] Allergy (Mild, Verified 07/08/17 20:26) hives, fever Home Medications: HOME MEDICATIONS Fluconazole 150 mg PO ONCE #1 tablet 07/04/17 [Last Taken Unknown] - History of Present History Narrative: Pt has felt weak and tired for a week or two. Getting worse and today she has felt her heart pounding when she stands up. Timing: getting worse Severity: moderate Modifying Factors - (Improves): Present: rest Modifying Factors - (Worsens): Present: movement Review of Systems - Review of Systems Constitutional: Present: recent illness EYE: Present: no symptoms reported ENT: Present: no symptoms reported Respiratory: Present: no symptoms reported Cardiology: Present: See HPI, palpitations. Absent: chest pain Gastrointestinal/Abdominal: Absent: nausea, vomiting Genitourinary: Present: no symptoms reported - is being treated for BV but states she has no symptoms at this time15 Musculoskeletal: Present: no symptoms reported Skin: Present: no symptoms reported Neurological: Present: dizziness/light-headedness - Patient's Past Medical History Patient History - Medical: Headache, UTI'S Patient History - Cardiac/Respiratory: No pertinent hx Patient History - Cancer: No Hx of Cancer Patient History - Surgical Procedures: , Hysterectomy, Other Patient History - Other: None LMP (females 10-50): hysterectomy - Family History Mother Family History - Medical: No pertinent hx Family History - Cardiac/Respiratory: No pertinent hx Father Family History - Medical: , No pertinent hx Family History - Cardiac/Respiratory: Myocardial Infarction Grandfather-Maternal Family History - Medical: No pertinent hx, GERD Family History - Cardiac/Respiratory: No pertinent hx - Social History Living Situations: home Abuse History: No History of abuse Psych History: No pertinent hx Does anyone smoke in the home?: No Smoking Status: Never smoker Alcohol Use: none Drug Use: none - Immunizations Immunizations Up to Date: Yes Hx Pneumococcal Vaccination: Yes History of Influenza Vaccine: Yes Physical Exam - Physical Exam General Appearance: Present: wd/wn, alert, no apparent distress Head Exam: Present: normal inspection, no evidence of injury Eye Exam: Normal inspection: bilateral, PERRL: bilateral, EOMI: bilateral Ears, Nose, Throat: Present: normal ENT inspection Neck: Present: normal inspection, nontender Respiratory: Present: no respiratory distress, lungs clear Cardiovascular/Chest: Present: regular rate, rhythm, no murmur Gastrointestinal/Abdominal: Present: normal bowel sounds, nontender Extremity Exam: Present: normal inspection, normal range of motion, no edema Neurological Exam: Present: alert, oriented, normal mood/affect, no motor/ sensory deficits, mining professionals II-XII nml as tested Skin Exam: Present: normal color, warm/dry ED Progress - Results and Orders Patient's Lab Results:: I have reviewed the patient's lab results. Results and Orders: Laboratory Tests 07/08/17 07/08/17 07/08/17 21:15 21:15 22:16 WBC 8.3 Hgb 13.8 Hct 41.8 Plt Count 253 Sodium 138 Potassium 3.7 Chloride 101 Carbon Dioxide 25.5 Anion Gap 15.2 H BUN 27 H D Creatinine 1.24 Est GFR (Non-Af Amer) 51 L D Random Glucose 125 H Calcium 9.7 Total Bilirubin 0.4 AST 12 ALT 12 L Alkaline Phosphatase 104 Total Protein 7.9 Albumin 4.0 Urine Color Pale yellow Urine Appearance Clear Urine pH 6.0 Ur Specific [place] 1.010 Urine Protein Negative Urine Glucose (UA) Negative Urine Ketones Negative Urine Blood 5 H Urine Nitrate Negative Urine Bilirubin Negative Urine Urobilinogen Normal Ur Leukocyte Esterase Negative Urine RBC None seen Urine WBC Trace H Ur Epithelial Cells 0-5 Urine Bacteria 1+ H Urine Mucus Moderate - 2+ H Urine Culture Comments No culture indicated - Vital Signs Patient's Vital Signs:: I have reviewed the patient's vital signs. Vital Signs: Vital Signs 07/08/17 20:19 Temperature 36.9 C Pulse Rate 98 Respiratory 16 Rate Blood Pressure 136/86 O2 Sat by Pulse 97 Oximetry - EKG EKG: NSR EKG read: Interp. by me - Progress/Reassessment Chief Complaint: General Assessment Progress:: Improved - somewhat from IV fluids Departure - Departure Clinical Impression: Dehydration Disposition: Home self-care Condition: Good Instructions: Dehydration, Adult, [id number] Additional Instructions: follow up with your regular doctor for further workup if not improving with continued hydration
[2017-07-08 21:22] LABS: Hematocrit 41.8 % (37.0-47.0); Hemoglobin 13.8 gm/dL (12.5-16.0); Mean Cell Volume 87.8 fl (78-100); Mean Platelet Volume 9.8 fl (6.0-9.5); Neutrophil # 5.9 K/mm3 (1.3-6.0); Neutrophil % 70.2 % (42-75.0); Platelet Count 253 K/mm3 (150-450); Red Blood Count 4.76 M/mm3 (4.2-5.4); Red Cell Distribution Width 13.8 % (11.5-14.0); White Blood Count 8.3 K/mm3 (4.0-10.5)
[2017-07-08 21:37] LABS: ALT 12 U/L (19-67); AST 12 U/L (0-48); Alkaline Phosphatase * 104 U/L (50-170); Anion Gap 15.2 mmol/L (6.8-13.8); BUN/Creatinine Ratio 21.8 (9.0-21.6); Bilirubin, Total 0.4 mg/dL (0.0-1.1); Blood Urea Nitrogen 27 mg/dL (3-23); Ca. Corrected For Albumin 9.4 mg/dL (8.4-10.2); Calcium * 9.7 mg/dL (7.9-10.9); Carbon Dioxide 25.5 mmol/L (24-32.6); Chloride 101 mmol/L (97-106); Glucose * 125 mg/dL (70-110); Potassium 3.7 mmol/L (3.4-4.6); Sodium 138 mmol/L (132-142); Total Protein 7.9 gm/dL (6.2-8.2)
[2017-07-08 22:27] LABS: Urine Bilirubin Negative (NEGATIVE); Urine Ketone Negative (NEGATIVE); Urine Nitrite Negative (NEGATIVE); Urine Protein Negative (NEGATIVE); Urine Urobilinogen Normal (NORMAL)
[2017-07-08 22:37] LABS: Urine Appearance Clear; Urine Bacteria 1+; Urine Blood 5 /ul (NEGATIVE); Urine Color Pale Yellow; Urine Mucus Moderate - 2+; Urine RBC None Seen /hpf (0-5); Urine WBC TRACE /hpf (0-5)
[2017-07-08 22:41] LABS: Cocaine Ur Negative (NEGATIVE); Urine Barbiturate Negative (NEGATIVE); Urine Benzodiazepines Negative (NEGATIVE); Urine Opiates Negative (NEGATIVE); Urine PCP Negative (NEGATIVE); Urine THC Negative (NEGATIVE)
[2017-07-09 00:57] VITALS: BP 109/69
== END 2017-07-09 00:49 | disposition home or self-care (01) ==
LOC: ER 20:16
DX: E86.0 Dehydration (principal); Z87.440 Personal history of urinary (tract) infections
CPT/HCPCS: 36415; 80053; 80307; 81001; 85025; 93005; 96360; 99284; G0481

== ENCOUNTER 2017-08-09 22:22 | Emergency (ER) | payer MEDICAID ==
[2017-08-09 22:57] LABS: Urine Bilirubin Negative (NEGATIVE); Urine Blood Negative /ul (NEGATIVE); Urine Ketone 5 mg/dL (NEGATIVE); Urine Nitrite Negative (NEGATIVE); Urine Protein Negative (NEGATIVE); Urine Specific Gravity 1.025 SP.GR. (1.005-1.010); Urine Urobilinogen Normal (NORMAL)
[2017-08-09 23:00] LABS: Hematocrit 37.7 % (37.0-47.0); Hemoglobin 12.2 gm/dL (12.5-16.0); Mean Cell Volume 88.9 fl (78-100); Mean Corpuscular Hemoglobin 28.8 pg (27-31); Mean Corpuscular Hgb Conc 32.4 g/dl (32-36); Mean Platelet Volume 9.6 fl (6.0-9.5); Neutrophil % 62.2 % (42-75.0); Platelet Count 257 K/mm3 (150-450); Red Blood Count 4.24 M/mm3 (4.2-5.4); Red Cell Distribution Width 13.9 % (11.5-14.0); White Blood Count 8.1 K/mm3 (4.0-10.5)
[2017-08-09 23:10] LABS: Urine Appearance Clear; Urine Bacteria 1+; Urine Color Yellow; Urine RBC None Seen /hpf (0-5); Urine WBC TRACE /hpf (0-5); Urine Yeast Few - 1+
--- NOTE | 2017-08-09 23:11 | ERNOTE ---
Abdominal HPI - General Chief Complaint: Abdominal Pain Time Seen by Provider: 08/09/17 23:09 Source: patient, RN notes reviewed - Immun/Allergies/Home Medications Immunizatons: IMMUNIZATION HX Immunizations Up to Date Yes History of Influenza Vaccine Yes Hx Pneumococcal Vaccination Yes Allergies/Adverse Reactions: Allergies Sulfa (Sulfonamide Antibiotics) [Sulfa(Sulfonamide Antibiotics)] Allergy (Mild, Verified 07/08/17 20:26) hives, fever Home Medications: HOME MEDICATIONS Cyclobenzaprine HCl [Flexeril] 10 mg PO TID PRN 08/09/17 [Last Taken Unknown] HYDROcodone/ACETAMINOPHEN [Hydrocodon-Acetaminophen 5-325] 1 each PO TID PRN [Last Taken Unknown] Naproxen [Naprosyn] 500 mg PO BID PRN 08/09/17 [Last Taken Unknown] - History of Present Illness Narrative: Patient with left upper quadrant and left flank pain for the last 24 hours. She is not getting any relief, so she came in to get checked out. Last bowel movement was earlier today, she generally moves her bowels 1-3 times daily. No nausea or vomiting, the pain starts in her back and radiates around to the front. Timing: constant Quality: moderate, cramping Activities at Onset: none Modifying Factors - (Improves): Present: rest, lying down Modifying Factors - (Worsens): Present: sitting up, movement, exercise Associated Symptoms: Present: back pain Prior Abdominal Problems: Present: none Review of Systems - Review of Systems Constitutional: Present: no symptoms reported EYE: Absent: eye pain, eye discharge ENT: Absent: ear pain, nasal drainage, sore throat Respiratory: Absent: shortness of breath, cough Cardiology: Absent: chest pain Gastrointestinal/Abdominal: Present: abdominal pain. Absent: nausea, vomiting Genitourinary: Absent: frequency, pain, dysuria, hematuria Musculoskeletal: Present: muscle pain. Absent: back pain, muscle stiffness, neck pain, joint pain Skin: Present: no symptoms reported Neurological: Absent: anxiety, depressed, headache - Patient's Past Medical History Patient History - Medical: Headache, UTI'S Patient History - Cardiac/Respiratory: No pertinent hx Patient History - Cancer: No Hx of Cancer Patient History - Surgical Procedures: , Hysterectomy, Other Patient History - Other: None LMP (females 10-50): hysterectomy - Family History Mother Family History - Medical: No pertinent hx Family History - Cardiac/Respiratory: No pertinent hx Father Family History - Medical: , No pertinent hx Family History - Cardiac/Respiratory: Myocardial Infarction Grandfather-Maternal Family History - Medical: No pertinent hx, GERD Family History - Cardiac/Respiratory: No pertinent hx - Social History Living Situations: home Abuse History: No History of abuse Psych History: No pertinent hx Does anyone smoke in the home?: No Smoking Status: Never smoker Have you smoked in the past 12 months: No Do you dip or chew tobacco: No Alcohol Use: none Drug Use: none - Immunizations Immunizations Up to Date: Yes Hx Pneumococcal Vaccination: Yes History of Influenza Vaccine: Yes Physical Exam - Physical Exam General Appearance: Present: wd/wn, alert, mild distress, obese Head Exam: Present: normal inspection, no evidence of injury Eye Exam: Normal inspection: bilateral, PERRL: bilateral, EOMI: bilateral Ears, Nose, Throat: Present: normal ENT inspection Neck: Present: normal inspection, nontender Respiratory: Present: no respiratory distress, normal breath sounds, no accessory muscle use, chest nontender, lungs clear Cardiovascular/Chest: Present: regular rate, rhythm, no murmur, normal peripheral pulses Gastrointestinal/Abdominal: Present: normal bowel sounds, nondistended, soft, tenderness - left upper quadrant, guarding Back Exam: Present: normal range of motion, no CVA tenderness, no vertebral tenderness, other - Positive Chirag's sign on the left Extremity Exam: Present: normal inspection, non-tender, normal range of motion, no edema Neurological Exam: Present: alert, oriented, normal mood/affect, no motor/ sensory deficits Skin Exam: Present: normal color, warm/dry Lymphatic Exam: Present: no adenopathy ED Progress - Results and Orders Patient's Lab Results:: I have reviewed the patient's lab results. - Vital Signs Patient's Vital Signs:: I have reviewed the patient's vital signs. Vital Signs: Vital Signs 08/09/17 22:26 Temperature 37.1 C Pulse Rate 96 Respiratory 16 Rate Blood Pressure 155/80 O2 Sat by Pulse 98 Oximetry - CT/Ultrasound CT/Ultrasound Narrative: No kidney stones, no liver, gallbladder, spleen or pancreatic abnormalities, abdominal aorta normal in caliber, appendix appears normal, no kidney stone noted. Uterus is surgially absent. Stool throughout the colon consistent with fecal loading. - Progress/Reassessment Chief Complaint: Abdominal Pain Plan - Plan Plan: Discharge home with medication and counseling for constipation. Departure - Departure Clinical Impression: Constipation Qualifiers: Constipation type: unspecified constipation type Qualified Code(s): K59.00 - Constipation, unspecified Disposition: Home self-care Condition: Good Additional Instructions: Purchase over the counter Polyethlene Glycol and use everyday to every other day for constipation. Referrals: Christa Montejo MD [Primary Care Provider] -
[2017-08-09 23:13] LABS: Albumin * 3.8 gm/dl (3.4-5.0); BUN/Creatinine Ratio 15.5 (9.0-21.6); Bilirubin, Total 0.3 mg/dL (0.0-1.1); Ca. Corrected For Albumin 8.4 mg/dL (8.4-10.2); Calcium * 8.6 mg/dL (7.9-10.9); Carbon Dioxide 26.7 mmol/L (24-32.6); Potassium 3.7 mmol/L (3.4-4.6); Total Protein 7.2 gm/dL (6.2-8.2)
[2017-08-10] MEDS ORDERED: KETOROLAC TROMETHAMINE 60 MG/2 ML VIAL IM ONE ×2 (01:05→01:09)
[2017-08-10 01:17] VITALS: BP 130/73
== END 2017-08-10 01:36 | disposition home or self-care (01) ==
LOC: ER 22:22
DX: K59.00 Constipation, unspecified (principal); Z87.440 Personal history of urinary (tract) infections

== ENCOUNTER 2017-09-01 00:07 | Emergency (ER) | payer MEDICAID ==
--- NOTE | 2017-09-01 01:39 | ERNOTE ---
ENT HPI Presenting Symptoms: other - Sore throat Time Seen by Provider: 09/01/17 01:36 Source: patient, RN notes reviewed Exam Limitations: no limitations - Immun/Allergies/Home Medications Immunizations: IMMUNIZATION HX Immunizations Up to Date Yes History of Influenza Vaccine More Information Required Hx Pneumococcal Vaccination Yes Allergies/Adverse Reactions: Allergies Allergy/AdvReac Type Severity Reaction Status Date / Time Sulfa (Sulfonamide Allergy Mild hives, Verified 09/01/17 00:43 Antibiotics) fever [Sulfa(Sulfonamide Antibiotics)] Home Medications: HOME MEDICATIONS Amoxicillin Trihydrate [Amoxil] 500 mg PO Q8H #30 capsule 09/01/17 [Last Taken Unknown] - History of Present Illness Narrative: Patient with a sore throat that started tonight. Severity: Present: moderate ENT Location: Present: throat Prearrival Treatment: Present: no prearrival treatment Modifying Factors - Improves: Reports: nothing Modifying Factors - Worsens: Reports: activity Associated Symptoms - ENT: Reports: denies symptoms Review of Systems - Review of Systems Constitutional: Absent: recent illness, fever, chills EYE: Present: no symptoms reported ENT: Present: sore throat. Absent: ear pain Respiratory: Absent: shortness of breath, cough Cardiology: Absent: chest pain, palpitations Gastrointestinal/Abdominal: Absent: nausea, vomiting, diarrhea Genitourinary: Present: no symptoms reported Musculoskeletal: Absent: back pain, muscle pain, muscle stiffness Skin: Present: no symptoms reported Neurological: Present: no symptoms reported - Patient's Past Medical History Patient History - Medical: Headache, UTI'S Patient History - Cardiac/Respiratory: No pertinent hx Patient History - Cancer: No Hx of Cancer Patient History - Surgical Procedures: , Hysterectomy, Other Patient History - Other: None - Family History Mother Family History - Medical: No pertinent hx Family History - Cardiac/Respiratory: No pertinent hx Father Family History - Medical: , No pertinent hx Family History - Cardiac/Respiratory: Myocardial Infarction Grandfather-Maternal Family History - Medical: No pertinent hx, GERD Family History - Cardiac/Respiratory: No pertinent hx - Social History Living Situations: home Abuse History: No History of abuse Psych History: No pertinent hx Smoking Status: Never smoker Alcohol Use: none Drug Use: none - Immunizations Immunizations Up to Date: Yes Hx Pneumococcal Vaccination: Yes History of Influenza Vaccine: More Information Required to Determine Physical Exam - Physical Exam General Appearance: Present: wd/wn, alert, no apparent distress Head Exam: Present: normal inspection, no evidence of injury Eye Exam: Normal inspection: bilateral, PERRL: bilateral, EOMI: bilateral Ears, Nose, Throat: Present: normal except -, pharyngeal erythema Neck: Present: normal inspection, nontender Respiratory: Present: no respiratory distress, normal breath sounds, no accessory muscle use, chest nontender, lungs clear Cardiovascular/Chest: Present: regular rate, rhythm, no murmur, normal peripheral pulses Gastrointestinal/Abdominal: Present: normal bowel sounds, nontender, nondistended, soft Back Exam: Present: normal inspection, normal range of motion Extremity Exam: Present: normal inspection Neurological Exam: Present: alert, oriented, normal mood/affect ED Progress - Results and Orders Patient's Lab Results:: I have reviewed the patient's lab results. Results and Orders: Negative strep - Vital Signs Patient's Vital Signs:: I have reviewed the patient's vital signs. Vital Signs: Vital Signs 09/01/17 00:13 Temperature 36.7 C Pulse Rate 74 Respiratory 20 Rate Blood Pressure 133/77 O2 Sat by Pulse 100 Oximetry - Progress/Reassessment Chief Complaint: Sore Throat Plan - Plan Plan: will give the patient a script, initial Strep test is positive, advised her that this is probably a virus, but if she is not better in the next couple of days, she could fill the script and take the medication at that time. Departure Clinical Impression: Acute pharyngitis, unspecified Qualifiers: Pharyngitis/tonsillitis etiology: unspecified etiology Qualified Code(s): J02.9 - Acute pharyngitis, unspecified - Departure Disposition: Home self-care Condition: Good Instructions: Pharyngitis, [id number], Sore Throat Referrals: Christa Montejo MD [Primary Care Provider] - (5-7 days, sooner if you worsen) Prescriptions: Amoxicillin Trihydrate [Amoxil] 500 mg PO Q8H #30 capsule
[2017-09-01 02:02] VITALS: BP 128/73
== END 2017-09-01 02:01 | disposition home or self-care (01) ==
LOC: ER 00:07
DX: J02.9 Acute pharyngitis, unspecified (principal); Z87.440 Personal history of urinary (tract) infections

== ENCOUNTER 2017-09-17 08:42 | Emergency (ER) | payer MEDICAID ==
[2017-09-17 08:53] VITALS: BP 140/78
[2017-09-17] MEDS ORDERED: ORPHENADRINE CITRATE 30 MG/ML VIAL IM ONE (09:09)
--- NOTE | 2017-09-17 09:16 | ERNOTE ---
Back Pain ER HPI Date of Service: 09/17/17 Time Seen by Provider: 09/17/17 08:56 Source: patient Exam Limitations: no limitations Immunizations: IMMUNIZATION HX Immunizations Up to Date Yes History of Influenza Vaccine No Hx Pneumococcal Vaccination Yes Allergies/Adverse Reactions: Allergies Sulfa (Sulfonamide Antibiotics) [Sulfa(Sulfonamide Antibiotics)] Allergy (Mild, Verified 09/17/17 08:53) hives, fever Home Medications: HOME MEDICATIONS Methocarbamol [Robaxin] 500 mg PO TID PRN #12 tablet 09/17/17 [Last Taken Unknown] Narrative: Patient presents with right low back pain. She denies injury. No fever. She relates this has been bothering her for the last several days without injury. She has had this off and on for over 1 month. She states she received muscle relaxants in the past and took one today but no relief. Worse with mending and twisting. No fever. Pain moderate. Worse with bending forward. No acute radicular Sx. No N/T/W. No loss of bowel or bladder control. No CP or SOB. No urinary Sx. No dysuria. No flank pain. She localizes the pain to the right low back.. It will occasionally radiate to her right lateral hip but none now. Timing: Reports: intermittent Quality/Severity: Reports: moderate Location of pain: Reports: lower back Activities at Onset: Reports: none Recent Injury?: Reports: no Possible Precipitating Factor: Reports: none Modifying Factors - (Improves): Reports: other - rest Modifying Factors - (Worsens): Reports: movement flexion Associated Symptoms: Denies: fever/chills, constipation/incontinence, nausea/ vomiting, problems urinating, difficulty walking, numbess/weakness in legs Prior Treament: Denies: recently seen Review of Systems - Review of Systems Constitutional: Absent: fever Respiratory: Absent: shortness of breath Cardiology: Absent: chest pain Gastrointestinal/Abdominal: Absent: abdominal pain Genitourinary: Absent: dysuria Musculoskeletal: Present: See HPI Neurological: Absent: weakness, numbness, tingling - Patient's Past Medical History Patient History - Medical: Headache, UTI'S Patient History - Cardiac/Respiratory: No pertinent hx Patient History - Cancer: No Hx of Cancer Patient History - Surgical Procedures: , Hysterectomy, Other Patient History - Other: None - Family History Mother Family History - Medical: No pertinent hx Family History - Cardiac/Respiratory: No pertinent hx Father Family History - Medical: , No pertinent hx Family History - Cardiac/Respiratory: Myocardial Infarction Grandfather-Maternal Family History - Medical: No pertinent hx, GERD Family History - Cardiac/Respiratory: No pertinent hx - Social History Abuse History: No History of abuse Psych History: No pertinent hx Smoking Status: Never smoker Have you smoked in the past 12 months: No - Immunizations Immunizations Up to Date: Yes Hx Pneumococcal Vaccination: Yes History of Influenza Vaccine: No Physical Exam - Physical Exam General Appearance: Present: alert, no apparent distress Head Exam: Present: normal inspection, no evidence of injury Eye Exam: Normal inspection: bilateral, PERRL: bilateral Ears, Nose, Throat: Present: normal ENT inspection Neck: Present: normal inspection Respiratory: Present: no respiratory distress, normal breath sounds, no accessory muscle use, lungs clear Cardiovascular/Chest: Present: regular rate, rhythm Gastrointestinal/Abdominal: Present: normal bowel sounds, nontender, nondistended, soft. Absent: tenderness Back Exam: Present: other - There is completely reproducible tenderness right low back. Palpation of the musculature seems to completely reproduce her pain. No vertebral tenderness. No pain with ROM right hip, no hip tenderness.. Absent: CVA tenderness (R), CVA tenderness (L), vertebral tenderness Extremity Exam: Present: normal inspection, no edema Neurological Exam: Present: alert, normal mood/affect, no motor/sensory deficits , other - Can stand on toes and heels. Full LE strength. Patellar tendon reflexes equal and symmetric. Gait stable. No motor or sensory deficits. No evidence of cauda equina syndrome. ED Progress - Vital Signs Patient's Vital Signs:: I have reviewed the patient's vital signs. Vital Signs: Vital Signs 09/17/17 08:49 Temperature 36.9 C Pulse Rate 81 Respiratory 14 Rate Blood Pressure 140/78 O2 Sat by Pulse 97 Oximetry - X-Ray X-Ray #1 X-Ray: lumbosacral Interpretation: Interp. by me X-ray Comments: I reviewed official radiology report - Progress/Reassessment Chief Complaint: Back Pain Progress Note-Subjective: 09/17/17 09:43 This is completely reproducible with palpation of the left low back. No evidence of infectious process, abscess, diskiitis or cauda equina syndrome. No neuro deficits. Nothing to suggest urinary, intra-thoracic or intra- abdominal etiology. She feels like going home. I discussed warning signs and reasons to return as well as the need for close f/u. 09/17/17 09:46 Nothing to suggest hip etiology or septic arthritis. Departure Clinical Impression: Musculoskeletal pain - Departure Disposition: Home self-care Condition: Stable Instructions: Back Pain, Adult Additional Instructions: No driving with pain medications. Rest. Fluids. Follow-up with a primary doctor in 3 days for a re-check. Return for increased pain, numbness, tingling , weakness, loss of bowel or bladder control, fever or if your condition worsens or changes in any way. Referrals: Christa Montejo MD [Primary Care Provider] - Prescriptions: Methocarbamol [Robaxin] 500 mg PO TID PRN #12 tablet PRN Reason: Spasms
[2017-09-17] MEDS ORDERED: ORPHENADRINE CITRATE 30 MG/ML VIAL ONE (09:23)
== END 2017-09-17 09:50 | disposition home or self-care (01) ==
LOC: ER 08:42
DX: M79.1 Myalgia (principal)